=== PATIENT | female | born 1995 | race Two or more races ===

== ENCOUNTER 2023-05-27 18:06 | Emergency (ER) | payer MEDICAID ==
[~2023-05-27] VITALS: Ht 165.1 cm; Wt 63.6 kg
[2023-05-27 18:08] VITALS: TEMP 98.3
[2023-05-27 19:00] LABS: APPEARANCE,URINE TURBID (CLEAR); COLOR,URINE DARK YELLOW (YELLOW); GLUCOSE, URINE (UA) NEGATIVE (NEGATIVE); KETONES,URINE NEGATIVE (NEGATIVE); LEUKOCYTE ESTERASE ,URINE LARGE (NEGATIVE); OCCULT BLOOD,URINE LARGE (NEGATIVE); PH,URINE 6.5 (5.0-8.0); PROTEIN,URINE 100-200,SEE CONFIRM mg/dL (NEGATIVE); SPECIFIC GRAVITIY, URINE 1.018 (1.003-1.030)
[2023-05-27] MEDS ORDERED: ACETAMINOPHEN 500 MG TABLET PO ONE (19:00)
[2023-05-27 19:01] LABS: BILIRUBIN,URINE SMALL (NEGATIVE)
[2023-05-27 19:06] LABS: SULFOSALICYLIC ACID,URINE 3+ (Negative)
[2023-05-27 19:07] LABS: BACTERIA,URINE Few /HPF (None Seen); NITRATE,URINE NEGATIVE (NEGATIVE); RBC,URINE 26-50 /HPF (0-2); SQUAMOUS EPITHELIAL CELL,UR Few /LPF (None Seen); WBC,URINE 51-100 /HPF (0-5)
[2023-05-27] MEDS ORDERED: CEPH-558 PO (19:26)
[2023-05-27] MEDS ORDERED: IBUP-1492 PO (19:26)
[2023-05-27] MEDS ORDERED: CEPHALEXIN MONOHYDRATE 500 MG CAPSULE PO ONE (19:30)
[2023-05-27 20:07] VITALS: BP 128/72; PULSE 86; RESP 18
== END 2023-05-27 20:09 | disposition home or self-care (01) ==
LOC: EMS 18:07
DX: N39.0 Urinary tract infection, site not specified (principal)
CPT/HCPCS: 81001; 81002; 84703; 87086; 87186; 99283

== ENCOUNTER 2024-07-07 21:34 | Emergency (ER) | payer MEDICAID ==
[~2024-07-07] VITALS: Ht 162.6 cm; Wt 68.2 kg
[~2024-07-07 21:34] MED LIST: CEPH-558 PO; IBUP-1492 PO
[2024-07-07 21:49] VITALS: TEMP 98.3
[2024-07-07 23:36] VITALS: BP 122/66; PULSE 71; RESP 18; O2SAT 100
== END 2024-07-07 23:57 | disposition home or self-care (01) ==
LOC: EMS 21:46
DX: S90.31XA Contusion of right foot, initial encounter (principal); W20.8XXA Other cause of strike by thrown, projected or falling object, initial encounter; Y93.89 Activity, other specified; Y92.89 Other specified places as the place of occurrence of the external cause; Y99.8 Other external cause status
CPT/HCPCS: 99283

== ENCOUNTER 2024-11-04 15:19 | Emergency (ER) | payer MEDICAID ==
[~2024-11-04] VITALS: Ht 162.6 cm; Wt 63.6 kg
[2024-11-04 15:24] VITALS: BP 151/88; PULSE 84; RESP 18; TEMP 97.9; O2SAT 99
[2024-11-04 16:07] LABS: PLATELET COUNT (AUTO) 180 K/uL (150-450); RED BLOOD CELL COUNT(AUTO) 4.74 MIL/uL (4.00-5.20); RED CELL DISTRIBUTION WIDTH 13.8 % (11.5-14.5); WHITE BLOOD COUNT (AUTO) 6.8 K/uL (4.5-11.0)
[2024-11-04 17:03] LABS: CALCIUM, TOTAL 9.2 mg/dL (8.8-10.5); CREATININE 0.63 mg/dL (0.60-1.30); GLOMERULAR FILTR. RATE CALC > 60 mL/min (>60); GLUCOSE,RANDOM 94 mg/dL (70-110); SODIUM SERUM 136 mmol/L (136-145); UREA NITROGEN, BLOOD 9 mg/dL (7-18)
[2024-11-04 17:12] LABS: TROPONIN I-HIGH SENSITIVITY Less Than 4 ng/L (<51)
[2024-11-04 17:26] LABS: ASPARTATE AMINOTRANSFERASE 15.0 U/L (15-37); TOTAL PROTEIN, SERUM 7.7 g/dL (6.4-8.2)
[2024-11-04] MEDS ORDERED: IBUP-1554 PO (18:05)
[2024-11-04] MEDS ORDERED: ACET-66 PO (18:05)
[2024-11-04] MEDS ORDERED: OMEP-148 PO (18:05)
[2024-11-04] MEDS: ACETAMINOPHEN 500 MG TABLET PO ONE (18:31)
== END 2024-11-04 18:33 | disposition home or self-care (01) ==
LOC: EMS 15:23
DX: M54.6 Pain in thoracic spine (principal); R00.2 Palpitations; R07.89 Other chest pain; Z79.899 Other long term (current) drug therapy
CPT/HCPCS: 71045; 80048; 80076; 83690; 84484; 84703; 85025; 93005; 99285; 36415-L1; 36415-TC